=== PATIENT | male | born 1980 | race Caucasian/White ===

== ENCOUNTER 2018-05-10 17:49 | Inpatient (IN) | payer MEDICAID, OTHER ==
--- NOTE | 2018-05-10 18:14 | EDM.PDOC ---
<Susan Gonzales - Last Filed: 05/10/18 18:14> ED HPI GENERAL MEDICAL PROBLEM - General Chief Complaint: Skin Complaint Stated Complaint: LEG INJURY [id number] Time Seen by Provider: 05/10/18 18:14 Source of Information: Reports: Patient, Family, RN, RN Notes Reviewed History Limitations: Reports: No Limitations Right Lower Leg Pain Score (Numeric/FACES): 4 - Related Data Allergies Allergy/AdvReac Type Severity Reaction Status Date / Time No Known Allergies Allergy Verified 05/10/18 18:12 Home Meds: Home Meds Clindamycin HCl 300 mg PO TID 05/10/18 [History] Ibuprofen 400 mg PO Q8HR PRN 05/10/18 [History] metFORMIN HCl [Metformin HCl] 500 mg PO BID 05/10/18 [History] Past Medical History - Past Health History Medical/Surgical History: Denies Medical/Surgical History Course - Vital Signs Last Recorded V/S: Last Vital Signs Temp 36.6 C 05/10/18 18:03 Pulse 88 05/10/18 18:03 Resp 16 05/10/18 18:03 BP 142/81 H 05/10/18 18:20 Pulse Ox 97 05/10/18 18:03 - Orders/Labs/Meds Orders: Active Orders 24 hr Category Date Time Status CULTURE BLOOD [BC] Stat Lab 05/10/18 18:45 Received CULTURE BLOOD [BC] Stat Lab 05/10/18 18:50 Results CULTURE WOUND [RM] Stat Lab 05/10/18 20:10 Received Vancomycin 1 gm Med 05/10/18 20:00 Active Sodium Chloride 0.9% [Normal Saline] 250 ml IV ONETIME Blood Culture x2 Reflex Set [OM.PC] Stat Oth 05/10/18 18:34 Ordered Medication Orders Vancomycin HCl 1 gm/ Sodium (Chloride) 250 mls @ 167 mls/hr IV ONETIME ONE Stop: 05/10/18 21:29 Last Admin: 05/10/18 20:36 Dose: 167 mls/hr Labs: Laboratory Tests 05/10/18 05/10/18 05/10/18 Range/Units 18:45 18:45 18:45 WBC 21.0 H (5.0-10.0) 10^3/uL RBC 4.87 (4.6-6.2) 10^6/uL Hgb 13.8 L (14.0-18.0) g/dL Hct 41.2 (40.0-54.0) % MCV 84.6 (80-100) fL MCH 28.3 (27.0-34.0) pg MCHC 33.5 (33.0-35.0) g/dL Plt Count 383 D (150-450) 10^3/uL Neut % (Auto) 76.7 H (42.2-75.2) % Lymph % (Auto) 9.6 L (20.5-50.1) % [place] % (Auto) 10.7 H (2-8) % Eos % (Auto) 2.5 (1.0-3.0) % Baso % (Auto) 0.5 (0.0-1.0) % Add Manual Diff Yes Neutrophils % (Manual) 76 H (42-75) % Band Neutrophils % 7 % Lymphocytes % (Manual) 7 L (20-50) % Atypical Lymphs % 0 % Monocytes % (Manual) 7 (2-8) % Eosinophils % (Manual) 3 (1-3) % Basophils % (Manual) 0 Sodium 133 L (135-145) mmol/L Potassium 3.8 (3.6-5.0) mmol/L Chloride 99 L (101-111) mmol/L Carbon Dioxide 25.0 (21.0-31.0) mmol/L Anion Gap 12.8 BUN 8 (7-18) mg/dL Creatinine 0.8 (0.6-1.3) mg/dL Est Cr Clr Drug Dosing 137.27 mL/min Estimated GFR (MDRD) > 60 BUN/Creatinine Ratio 10.00 Glucose 159 H (74-105) mg/dL Lactic Acid 1.5 (0.5-2.2) mmol/L Calcium 8.8 (8.4-10.2) mg/dl Total Bilirubin 1.0 (0.2-1.0) mg/dL AST 38 (10-42) IU/L ALT 41 (10-60) IU/L Alkaline Phosphatase 152 H (42-121) IU/L Total Protein 8.1 (6.7-8.2) g/dl Albumin 3.3 (3.2-5.5) g/dl Globulin 4.8 Albumin/Globulin Ratio 0.69 Urine Color (YELLOW) Urine Appearance (CLEAR) Urine pH (5.0-9.0) Ur Specific [place] (1.005-1.030) Urine Protein (NEGATIVE) Urine Glucose (UA) (NEGATIVE) Urine Ketones (NEGATIVE) Urine Occult Blood (NEGATIVE) Urine Nitrite (NEGATIVE) Urine Bilirubin (NEGATIVE) Urine Urobilinogen (0.2-1.0) mg/dL Ur Leukocyte Esterase (NEGATIVE) Urine RBC /HPF Urine WBC (0-5/HPF) /HPF Ur Epithelial Cells /HPF Urine Bacteria (0-FEW/HPF) /HPF Urine Mucus /LPF Urine Opiates Screen (NEGATIVE) Ur Oxycodone Screen (NEGATIVE) Urine Methadone Screen (NEGATIVE) Ur Barbiturates Screen (NEGATIVE) U Tricyclic Antidepress (NEGATIVE) Ur Phencyclidine Scrn (NEGATIVE) Ur Amphetamine Screen (NEGATIVE) U Methamphetamines Scrn (NEGATIVE) Urine MDMA Screen (NEGATIVE) U Benzodiazepines Scrn (NEGATIVE) Urine Cocaine Screen (NEGATIVE) U Marijuana (THC) Screen (NEGATIVE) 05/10/18 05/10/18 Range/Units 19:42 19:42 WBC (5.0-10.0) 10^3/uL RBC (4.6-6.2) 10^6/uL Hgb (14.0-18.0) g/dL Hct (40.0-54.0) % MCV (80-100) fL MCH (27.0-34.0) pg MCHC (33.0-35.0) g/dL Plt Count (150-450) 10^3/uL Neut % (Auto) (42.2-75.2) % Lymph % (Auto) (20.5-50.1) % [place] % (Auto) (2-8) % Eos % (Auto) (1.0-3.0) % Baso % (Auto) (0.0-1.0) % Add Manual Diff Neutrophils % (Manual) (42-75) % Band Neutrophils % % Lymphocytes % (Manual) (20-50) % Atypical Lymphs % % Monocytes % (Manual) (2-8) % Eosinophils % (Manual) (1-3) % Basophils % (Manual) Sodium (135-145) mmol/L Potassium (3.6-5.0) mmol/L Chloride (101-111) mmol/L Carbon Dioxide (21.0-31.0) mmol/L Anion Gap BUN (7-18) mg/dL Creatinine (0.6-1.3) mg/dL Est Cr Clr Drug Dosing mL/min Estimated GFR (MDRD) BUN/Creatinine Ratio Glucose (74-105) mg/dL Lactic Acid (0.5-2.2) mmol/L Calcium (8.4-10.2) mg/dl Total Bilirubin (0.2-1.0) mg/dL AST (10-42) IU/L ALT (10-60) IU/L Alkaline Phosphatase (42-121) IU/L Total Protein (6.7-8.2) g/dl Albumin (3.2-5.5) g/dl Globulin Albumin/Globulin Ratio Urine Color [place] (YELLOW) Urine Appearance Slightly cloudy (CLEAR) Urine pH 6.0 (5.0-9.0) Ur Specific [place] 1.025 (1.005-1.030) Urine Protein 30 H (NEGATIVE) Urine Glucose (UA) 100 H (NEGATIVE) Urine Ketones Trace H (NEGATIVE) Urine Occult Blood Negative (NEGATIVE) Urine Nitrite Negative (NEGATIVE) Urine Bilirubin Small H (NEGATIVE) Urine Urobilinogen 1.0 (0.2-1.0) mg/dL Ur Leukocyte Esterase Negative (NEGATIVE) Urine RBC 0-5 /HPF Urine WBC 0-5 (0-5/HPF) /HPF Ur Epithelial Cells Few /HPF Urine Bacteria Moderate H (0-FEW/HPF) /HPF Urine Mucus Moderate H /LPF Urine Opiates Screen Negative (NEGATIVE) Ur Oxycodone Screen Negative (NEGATIVE) Urine Methadone Screen Negative (NEGATIVE) Ur Barbiturates Screen Negative (NEGATIVE) U Tricyclic Antidepress Negative (NEGATIVE) Ur Phencyclidine Scrn Negative (NEGATIVE) Ur Amphetamine Screen Negative (NEGATIVE) U Methamphetamines Scrn Negative (NEGATIVE) Urine MDMA Screen Negative (NEGATIVE) U Benzodiazepines Scrn Negative (NEGATIVE) Urine Cocaine Screen Negative (NEGATIVE) U Marijuana (THC) Screen Negative (NEGATIVE) Meds: Medications Generic Name Dose Route Start Last Admin Trade Name Freq PRN Reason Stop Dose Admin Vancomycin HCl 1 gm/ Sodium 250 mls @ 167 mls/hr 05/10/18 20:00 05/10/18 20: 36 Chloride IV 05/10/18 21:29 167 mls/hr ONETIME ONE Administration Discontinued Medications Generic Name Dose Route Start Last Admin Trade Name Freq PRN Reason Stop Dose Admin Hydromorphone HCl 1 mg 05/10/18 20:13 05/10/18 20:34 Dilaudid IVPUSH 05/10/18 20:14 Not Given ONETIME ONE Hydromorphone HCl 1 mg 05/10/18 20:18 05/10/18 20:35 Dilaudid IVPUSH 05/10/18 20:19 1 mg ONETIME STA Administration Ondansetron HCl 4 mg 05/10/18 20:13 05/10/18 20:34 Zofran IV 05/10/18 20:14 Not Given ONETIME ONE Ondansetron HCl 4 mg 05/10/18 20:18 05/10/18 20:33 Zofran IV 05/10/18 20:19 4 mg ONETIME STA Administration Departure - Departure Disposition: Admitted As Inpatient 68 Clinical Impression: Abscess Cellulitis Qualifiers: Site of cellulitis: extremity Site of cellulitis of extremity: lower extremity Laterality: right Qualified Code(s): L03.115 - Cellulitis of right lower limb - Discharge Information Forms: ED Department Discharge - My Orders Last 24 Hours: My Active Orders 05/10/18 20:00 Vancomycin 1 gm Sodium Chloride 0.9% [Normal Saline] 250 ml IV ONETIME 05/10/18 20:10 CULTURE WOUND [RM] Stat - Assessment/Plan Last 24 Hours: My Active Orders 05/10/18 20:00 Vancomycin 1 gm Sodium Chloride 0.9% [Normal Saline] 250 ml IV ONETIME 05/10/18 20:10 CULTURE WOUND [RM] Stat <Ervin Ramirez - Last Filed: 05/10/18 20:50> ED HPI GENERAL MEDICAL PROBLEM - History of Present Illness INITIAL COMMENTS - FREE TEXT/NARRATIVE: states left leg got infected last but was in care home. saw clinic Monday and started ABX but not helping and looks worse. ED ROS GENERAL - Review of Systems Review Of Systems: ROS reveals no pertinent complaints other than HPI. ED EXAM, SKIN/RASH Exam: See Below Exam Limited By: No Limitations General Appearance: Alert, WD/WN, Mild Distress, Other (discomfort) Ears: Hearing Grossly Normal Throat/Mouth: Normal Voice, No Airway Compromise Head: Atraumatic Neck: Non-Tender, Full Range of Motion Respiratory/Chest: No Respiratory Distress Cardiovascular: Regular Rate, Rhythm GI/Abdominal: Soft, Non-Tender Extremities: Other (left lower leg swollen abscess cellulitis slight drainage, NV wnl, gait limited to pain) Neurological: Alert, Oriented, Normal Cognition, No Motor/Sensory Deficits Psychiatric: Flat Affect Skin: Warm, Dry, Normal Color Location, Skin: Lower Extremity, Right Associated features: Warmth, Tenderness, Swelling, Inflammation, Weeping Lymphatic: No Adenopathy ED SKIN PROCEDURES - I&D Site: right lower leg Skin Prep: Providone-Iodine (Betadine) Area Incised With: 11 Blade Drainage: Purulent, Bloody, Large Amount Packed With: 1/2 in. Iodoform Complications: No - Additional/Other Procedure(s) Other (Free Text) Procedure(s): 1) area cleansed 2) ethyl CL spray 3) aspirated 30ml purulosang fluid 4) dressed Course - Orders/Labs/Meds Labs: Laboratory Tests 05/10/18 05/10/18 05/10/18 Range/Units 18:45 18:45 18:45 WBC 21.0 H (5.0-10.0) 10^3/uL RBC 4.87 (4.6-6.2) 10^6/uL Hgb 13.8 L (14.0-18.0) g/dL Hct 41.2 (40.0-54.0) % MCV 84.6 (80-100) fL MCH 28.3 (27.0-34.0) pg MCHC 33.5 (33.0-35.0) g/dL Plt Count 383 D (150-450) 10^3/uL Neut % (Auto) 76.7 H (42.2-75.2) % Lymph % (Auto) 9.6 L (20.5-50.1) % [place] % (Auto) 10.7 H (2-8) % Eos % (Auto) 2.5 (1.0-3.0) % Baso % (Auto) 0.5 (0.0-1.0) % Add Manual Diff Yes Neutrophils % (Manual) 76 H (42-75) % Band Neutrophils % 7 % Lymphocytes % (Manual) 7 L (20-50) % Atypical Lymphs % 0 % Monocytes % (Manual) 7 (2-8) % Eosinophils % (Manual) 3 (1-3) % Basophils % (Manual) 0 Sodium 133 L (135-145) mmol/L Potassium 3.8 (3.6-5.0) mmol/L Chloride 99 L (101-111) mmol/L Carbon Dioxide 25.0 (21.0-31.0) mmol/L Anion Gap 12.8 BUN 8 (7-18) mg/dL Creatinine 0.8 (0.6-1.3) mg/dL Est Cr Clr Drug Dosing 137.27 mL/min Estimated GFR (MDRD) > 60 BUN/Creatinine Ratio 10.00 Glucose 159 H (74-105) mg/dL Lactic Acid 1.5 (0.5-2.2) mmol/L Calcium 8.8 (8.4-10.2) mg/dl Total Bilirubin 1.0 (0.2-1.0) mg/dL AST 38 (10-42) IU/L ALT 41 (10-60) IU/L Alkaline Phosphatase 152 H (42-121) IU/L Total Protein 8.1 (6.7-8.2) g/dl Albumin 3.3 (3.2-5.5) g/dl Globulin 4.8 Albumin/Globulin Ratio 0.69 Urine Color (YELLOW) Urine Appearance (CLEAR) Urine pH (5.0-9.0) Ur Specific [place] (1.005-1.030) Urine Protein (NEGATIVE) Urine Glucose (UA) (NEGATIVE) Urine Ketones (NEGATIVE) Urine Occult Blood (NEGATIVE) Urine Nitrite (NEGATIVE) Urine Bilirubin (NEGATIVE) Urine Urobilinogen (0.2-1.0) mg/dL Ur Leukocyte Esterase (NEGATIVE) Urine RBC /HPF Urine WBC (0-5/HPF) /HPF Ur Epithelial Cells /HPF Urine Bacteria (0-FEW/HPF) /HPF Urine Mucus /LPF Urine Opiates Screen (NEGATIVE) Ur Oxycodone Screen (NEGATIVE) Urine Methadone Screen (NEGATIVE) Ur Barbiturates Screen (NEGATIVE) U Tricyclic Antidepress (NEGATIVE) Ur Phencyclidine Scrn (NEGATIVE) Ur Amphetamine Screen (NEGATIVE) U Methamphetamines Scrn (NEGATIVE) Urine MDMA Screen (NEGATIVE) U Benzodiazepines Scrn (NEGATIVE) Urine Cocaine Screen (NEGATIVE) U Marijuana (THC) Screen (NEGATIVE) 05/10/18 05/10/18 Range/Units 19:42 19:42 WBC (5.0-10.0) 10^3/uL RBC (4.6-6.2) 10^6/uL Hgb (14.0-18.0) g/dL Hct (40.0-54.0) % MCV (80-100) fL MCH (27.0-34.0) pg MCHC (33.0-35.0) g/dL Plt Count (150-450) 10^3/uL Neut % (Auto) (42.2-75.2) % Lymph % (Auto) (20.5-50.1) % [place] % (Auto) (2-8) % Eos % (Auto) (1.0-3.0) % Baso % (Auto) (0.0-1.0) % Add Manual Diff Neutrophils % (Manual) (42-75) % Band Neutrophils % % Lymphocytes % (Manual) (20-50) % Atypical Lymphs % % Monocytes % (Manual) (2-8) % Eosinophils % (Manual) (1-3) % Basophils % (Manual) Sodium (135-145) mmol/L Potassium (3.6-5.0) mmol/L Chloride (101-111) mmol/L Carbon Dioxide (21.0-31.0) mmol/L Anion Gap BUN (7-18) mg/dL Creatinine (0.6-1.3) mg/dL Est Cr Clr Drug Dosing mL/min Estimated GFR (MDRD) BUN/Creatinine Ratio Glucose (74-105) mg/dL Lactic Acid (0.5-2.2) mmol/L Calcium (8.4-10.2) mg/dl Total Bilirubin (0.2-1.0) mg/dL AST (10-42) IU/L ALT (10-60) IU/L Alkaline Phosphatase (42-121) IU/L Total Protein (6.7-8.2) g/dl Albumin (3.2-5.5) g/dl Globulin Albumin/Globulin Ratio Urine Color [place] (YELLOW) Urine Appearance Slightly cloudy (CLEAR) Urine pH 6.0 (5.0-9.0) Ur Specific [place] 1.025 (1.005-1.030) Urine Protein 30 H (NEGATIVE) Urine Glucose (UA) 100 H (NEGATIVE) Urine Ketones Trace H (NEGATIVE) Urine Occult Blood Negative (NEGATIVE) Urine Nitrite Negative (NEGATIVE) Urine Bilirubin Small H (NEGATIVE) Urine Urobilinogen 1.0 (0.2-1.0) mg/dL Ur Leukocyte Esterase Negative (NEGATIVE) Urine RBC 0-5 /HPF Urine WBC 0-5 (0-5/HPF) /HPF Ur Epithelial Cells Few /HPF Urine Bacteria Moderate H (0-FEW/HPF) /HPF Urine Mucus Moderate H /LPF Urine Opiates Screen Negative (NEGATIVE) Ur Oxycodone Screen Negative (NEGATIVE) Urine Methadone Screen Negative (NEGATIVE) Ur Barbiturates Screen Negative (NEGATIVE) U Tricyclic Antidepress Negative (NEGATIVE) Ur Phencyclidine Scrn Negative (NEGATIVE) Ur Amphetamine Screen Negative (NEGATIVE) U Methamphetamines Scrn Negative (NEGATIVE) Urine MDMA Screen Negative (NEGATIVE) U Benzodiazepines Scrn Negative (NEGATIVE) Urine Cocaine Screen Negative (NEGATIVE) U Marijuana (THC) Screen Negative (NEGATIVE) Meds: Medications Generic Name Dose Route Start Last Admin Trade Name Freq PRN Reason Stop Dose Admin Vancomycin HCl 1 gm/ Sodium 250 mls @ 167 mls/hr 05/10/18 20:00 05/10/18 20: 36 Chloride IV 05/10/18 21:29 167 mls/hr ONETIME ONE Administration Discontinued Medications Generic Name Dose Route Start Last Admin Trade Name Freq PRN Reason Stop Dose Admin Hydromorphone HCl 1 mg 05/10/18 20:13 05/10/18 20:34 Dilaudid IVPUSH 05/10/18 20:14 Not Given ONETIME ONE Hydromorphone HCl 1 mg 05/10/18 20:18 05/10/18 20:35 Dilaudid IVPUSH 05/10/18 20:19 1 mg ONETIME STA Administration Ondansetron HCl 4 mg 05/10/18 20:13 05/10/18 20:34 Zofran IV 05/10/18 20:14 Not Given ONETIME ONE Ondansetron HCl 4 mg 05/10/18 20:18 05/10/18 20:33 Zofran IV 05/10/18 20:19 4 mg ONETIME STA Administration - Re-Assessments/Exams Free Text/Narrative Re-Assessment/Exam: 05/10/18 20:[address] Kendrick who kindly admitted pt Departure - Departure Time of Disposition: 20:49 Condition: Fair - My Orders Last 24 Hours: My Active Orders 05/10/18 20:00 Vancomycin 1 gm Sodium Chloride 0.9% [Normal Saline] 250 ml IV ONETIME 05/10/18 20:10 CULTURE WOUND [RM] Stat - Assessment/Plan Last 24 Hours: My Active Orders 05/10/18 20:00 Vancomycin 1 gm Sodium Chloride 0.9% [Normal Saline] 250 ml IV ONETIME 05/10/18 20:10 CULTURE WOUND [RM] Stat
[2018-05-10 19:21] LABS: ANION GAP 12.8; CHLORIDE,CL 99 mmol/L (101-111); SODIUM,NA 133 mmol/L (135-145)
[2018-05-10] MEDS ORDERED: HYDROmorphone 1 MG/ML Syringe IVPUSH ONE (20:13)
[2018-05-10] MEDS ORDERED: Ondansetron 4 MG/2 ML SDV IV ONE (20:13)
[2018-05-10] MEDS ORDERED: Ondansetron 4 MG/2 ML SDV IV STA (20:18)
[2018-05-10] MEDS ORDERED: HYDROmorphone 1 MG/ML Syringe IVPUSH STA (20:18)
[2018-05-10] MEDS ORDERED: Morphine 2 MG/ML Syringe IVPUSH PRN (21:31)
[2018-05-10] MEDS ORDERED: Zolpidem 5 MG Tab PO PRN (21:31)
[2018-05-10] MEDS ORDERED: Docusate Sodium 100 MG Cap PO PRN (21:31)
[2018-05-10] MEDS ORDERED: Ondansetron 4 MG Tab.DIS PO PRN (21:31)
[2018-05-10] MEDS ORDERED: Ibuprofen 400 MG Tab PO PRN (21:36)
--- NOTE | 2018-05-10 21:46 | PCM.HP ---
H&P History of Present Illness - General Date of Service: 05/10/18 Admit Problem/Dx: Admission Diagnosis/Problem Admission Diagnosis/Problem Cellulitis and abscess Source of Information: Patient - History of Present Illness Initial Comments - Free Text/Narative: 37-year-old gentleman with a history of diabetes. The patient developed right lower extremity pain, swelling, redness about a week prior to admission. The patient was diagnosed with cellulitis and was treated with clindamycin. Despite the oral antibiotic the patient's redness and swelling increased and came into the emergency room. He reports having fever and diffuse sweating initially. Location: Reports: Lower Extremity, Right Quality: Reports: Ache Severity: Moderate Worsens with: Reports: Other (Touch) Context: Denies: Trauma Associated Symptoms: Denies: Confusion, Chest Pain, Cough Right Lower Leg Pain Score (Numeric/FACES): 4 - Related Data Allergies/Adverse Reactions: Allergies Allergy/AdvReac Type Severity Reaction Status Date / Time No Known Allergies Allergy Verified 05/10/18 18:12 Home Medications: Home Meds Clindamycin HCl 300 mg PO TID 05/10/18 [History] Ibuprofen 400 mg PO Q8HR PRN 05/10/18 [History] metFORMIN HCl [Metformin HCl] 500 mg PO BID 05/10/18 [History] Past Medical History - Past Health History Medical/Surgical History: Denies Medical/Surgical History HEENT History: Reports: Impaired Vision Other HEENT History: wear glasses, Cardiovascular History: Reports: None, Hypertension Respiratory History: Reports: None Gastrointestinal History: Reports: None Genitourinary History: Reports: None Musculoskeletal History: Reports: None Neurological History: Reports: None Psychiatric History: Reports: None Endocrine/Metabolic History: Reports: Diabetes, Type II Hematologic History: Reports: None Immunologic History: Reports: None Oncologic (Cancer) History: Reports: None Dermatologic History: Reports: None - Infectious Disease History Infectious Disease History: Reports: None - Past Surgical History Head Surgeries/Procedures: Reports: None Social & Family History - Tobacco Use Smoking Status *Q: Current Every Day Smoker Years of Tobacco use: 8 Packs/Tins Daily: 0.5 - Caffeine Use Caffeine Use: Reports: Coffee, Soda - Recreational Drug Use Recreational Drug Use: No H&P Review of Systems - Review of Systems: Review Of Systems: See Below General: Reports: Fever Pulmonary: Denies: Shortness of Breath, Cough, Sputum Cardiovascular: Denies: Chest Pain Gastrointestinal: Denies: Abdominal Pain Psychiatric: Denies: Confusion Exam - Exam Exam: See Below - Vital Signs Vital Signs: Last Vital Signs Temp 36.6 C 05/10/18 18:03 Pulse 88 05/10/18 18:03 Resp 16 05/10/18 18:03 BP 142/81 H 05/10/18 18:20 Pulse Ox 97 05/10/18 18:03 Weight: 117.934 kg - Exam Quality Assessment: No: Supplemental Oxygen General: Alert, Oriented Neck: Supple Lungs: Clear to Auscultation, Normal Respiratory Effort Cardiovascular: Regular Rate, Regular Rhythm GI/Abdominal Exam: Normal Bowel Sounds, Soft, Non-Tender Back Exam: Normal Inspection Extremities: Other (Right lower extremity anterior pool area large palpable abscess that has drained about 50 mL possibly bloody drainage after incision) - Patient Data Lab Results Last 24 hrs: Laboratory Results - last 24 hr 05/10/18 05/10/18 05/10/18 Range/Units 18:45 18:45 18:45 WBC 21.0 H (5.0-10.0) 10^3/uL RBC 4.87 (4.6-6.2) 10^6/uL Hgb 13.8 L (14.0-18.0) g/dL Hct 41.2 (40.0-54.0) % MCV 84.6 (80-100) fL MCH 28.3 (27.0-34.0) pg MCHC 33.5 (33.0-35.0) g/dL Plt Count 383 D (150-450) 10^3/uL Neut % (Auto) 76.7 H (42.2-75.2) % Lymph % (Auto) 9.6 L (20.5-50.1) % [place] % (Auto) 10.7 H (2-8) % Eos % (Auto) 2.5 (1.0-3.0) % Baso % (Auto) 0.5 (0.0-1.0) % Add Manual Diff Yes Neutrophils % (Manual) 76 H (42-75) % Band Neutrophils % 7 % Lymphocytes % (Manual) 7 L (20-50) % Atypical Lymphs % 0 % Monocytes % (Manual) 7 (2-8) % Eosinophils % (Manual) 3 (1-3) % Basophils % (Manual) 0 Sodium 133 L (135-145) mmol/L Potassium 3.8 (3.6-5.0) mmol/L Chloride 99 L (101-111) mmol/L Carbon Dioxide 25.0 (21.0-31.0) mmol/L Anion Gap 12.8 BUN 8 (7-18) mg/dL Creatinine 0.8 (0.6-1.3) mg/dL Est Cr Clr Drug Dosing 137.27 mL/min Estimated GFR (MDRD) > 60 BUN/Creatinine Ratio 10.00 Glucose 159 H (74-105) mg/dL Lactic Acid 1.5 (0.5-2.2) mmol/L Calcium 8.8 (8.4-10.2) mg/dl Total Bilirubin 1.0 (0.2-1.0) mg/dL AST 38 (10-42) IU/L ALT 41 (10-60) IU/L Alkaline Phosphatase 152 H (42-121) IU/L Total Protein 8.1 (6.7-8.2) g/dl Albumin 3.3 (3.2-5.5) g/dl Globulin 4.8 Albumin/Globulin Ratio 0.69 Urine Color (YELLOW) Urine Appearance (CLEAR) Urine pH (5.0-9.0) Ur Specific [place] (1.005-1.030) Urine Protein (NEGATIVE) Urine Glucose (UA) (NEGATIVE) Urine Ketones (NEGATIVE) Urine Occult Blood (NEGATIVE) Urine Nitrite (NEGATIVE) Urine Bilirubin (NEGATIVE) Urine Urobilinogen (0.2-1.0) mg/dL Ur Leukocyte Esterase (NEGATIVE) Urine RBC /HPF Urine WBC (0-5/HPF) /HPF Ur Epithelial Cells /HPF Urine Bacteria (0-FEW/HPF) /HPF Urine Mucus /LPF Urine Opiates Screen (NEGATIVE) Ur Oxycodone Screen (NEGATIVE) Urine Methadone Screen (NEGATIVE) Ur Barbiturates Screen (NEGATIVE) U Tricyclic Antidepress (NEGATIVE) Ur Phencyclidine Scrn (NEGATIVE) Ur Amphetamine Screen (NEGATIVE) U Methamphetamines Scrn (NEGATIVE) Urine MDMA Screen (NEGATIVE) U Benzodiazepines Scrn (NEGATIVE) Urine Cocaine Screen (NEGATIVE) U Marijuana (THC) Screen (NEGATIVE) 05/10/18 05/10/18 Range/Units 19:42 19:42 WBC (5.0-10.0) 10^3/uL RBC (4.6-6.2) 10^6/uL Hgb (14.0-18.0) g/dL Hct (40.0-54.0) % MCV (80-100) fL MCH (27.0-34.0) pg MCHC (33.0-35.0) g/dL Plt Count (150-450) 10^3/uL Neut % (Auto) (42.2-75.2) % Lymph % (Auto) (20.5-50.1) % [place] % (Auto) (2-8) % Eos % (Auto) (1.0-3.0) % Baso % (Auto) (0.0-1.0) % Add Manual Diff Neutrophils % (Manual) (42-75) % Band Neutrophils % % Lymphocytes % (Manual) (20-50) % Atypical Lymphs % % Monocytes % (Manual) (2-8) % Eosinophils % (Manual) (1-3) % Basophils % (Manual) Sodium (135-145) mmol/L Potassium (3.6-5.0) mmol/L Chloride (101-111) mmol/L Carbon Dioxide (21.0-31.0) mmol/L Anion Gap BUN (7-18) mg/dL Creatinine (0.6-1.3) mg/dL Est Cr Clr Drug Dosing mL/min Estimated GFR (MDRD) BUN/Creatinine Ratio Glucose (74-105) mg/dL Lactic Acid (0.5-2.2) mmol/L Calcium (8.4-10.2) mg/dl Total Bilirubin (0.2-1.0) mg/dL AST (10-42) IU/L ALT (10-60) IU/L Alkaline Phosphatase (42-121) IU/L Total Protein (6.7-8.2) g/dl Albumin (3.2-5.5) g/dl Globulin Albumin/Globulin Ratio Urine Color [place] (YELLOW) Urine Appearance Slightly cloudy (CLEAR) Urine pH 6.0 (5.0-9.0) Ur Specific [place] 1.025 (1.005-1.030) Urine Protein 30 H (NEGATIVE) Urine Glucose (UA) 100 H (NEGATIVE) Urine Ketones Trace H (NEGATIVE) Urine Occult Blood Negative (NEGATIVE) Urine Nitrite Negative (NEGATIVE) Urine Bilirubin Small H (NEGATIVE) Urine Urobilinogen 1.0 (0.2-1.0) mg/dL Ur Leukocyte Esterase Negative (NEGATIVE) Urine RBC 0-5 /HPF Urine WBC 0-5 (0-5/HPF) /HPF Ur Epithelial Cells Few /HPF Urine Bacteria Moderate H (0-FEW/HPF) /HPF Urine Mucus Moderate H /LPF Urine Opiates Screen Negative (NEGATIVE) Ur Oxycodone Screen Negative (NEGATIVE) Urine Methadone Screen Negative (NEGATIVE) Ur Barbiturates Screen Negative (NEGATIVE) U Tricyclic Antidepress Negative (NEGATIVE) Ur Phencyclidine Scrn Negative (NEGATIVE) Ur Amphetamine Screen Negative (NEGATIVE) U Methamphetamines Scrn Negative (NEGATIVE) Urine MDMA Screen Negative (NEGATIVE) U Benzodiazepines Scrn Negative (NEGATIVE) Urine Cocaine Screen Negative (NEGATIVE) U Marijuana (THC) Screen Negative (NEGATIVE) Result Diagrams: 05/10/18 18:45 05/10/18 18:45 Moisés Results Last 24 hrs: Microbiology 05/10/18 18:50 Anaerobic Blood Culture - Final Blood - Venous - Lab Draw - Problem List (1) Diabetes SNOMED Code(s): 84027067 ICD Code: E11.9 - TYPE 2 DIABETES MELLITUS WITHOUT COMPLICATIONS Status: Acute Current Visit: Yes (2) Abscess SNOMED Code(s): 249642828 ICD Code: L02.91 - CUTANEOUS ABSCESS, UNSPECIFIED Status: Acute Current Visit: No (3) Cellulitis SNOMED Code(s): 959106697 ICD Code: L03.90 - CELLULITIS, UNSPECIFIED Status: Acute Current Visit: No Qualifiers: Site of cellulitis: extremity Site of cellulitis of extremity: lower extremity Laterality: right Qualified Code(s): L03.115 - Cellulitis of right lower limb Problem List Initiated/Reviewed/Updated: Yes Orders Last 24hrs: Active Orders 24 hr Category Date Time Status Patient Status [ADT] Routine ADT 05/10/18 21:31 Ordered Blood Glucose Check, Bedside [RC] QIDACANDBED Care 05/10/18 21:31 Ordered Oxygen Therapy [RC] PRN Care 05/10/18 21:31 Ordered Peripheral IV Care [RC] . DIRECTED Care 05/10/18 21:33 Ordered Up ad Tiffany [RC] ASDIRECTED Care 05/10/18 21:31 Ordered VTE/DVT Education [RC] PER UNIT ROUTINE Care 05/10/18 21:31 Ordered Vital Signs [RC] Q4H Care 05/10/18 21:31 Ordered Consistent Carbohydrate Diet [DIET] Diet 05/10/18 Breakfast Ordered BASIC METABOLIC PANEL,BMP [CHEM] AM Lab 05/11/18 05:11 Ordered CBC WITH AUTO DIFF [HEME] AM Lab 05/11/18 05:11 Ordered CULTURE BLOOD [BC] Stat Lab 05/10/18 18:45 Received CULTURE BLOOD [BC] Stat Lab 05/10/18 18:50 Results CULTURE WOUND [RM] Stat Lab 05/10/18 20:10 Received Docusate Sodium [Colace] Med 05/10/18 21:31 Ordered 100 mg PO BID PRN Heparin Sodium Med 05/10/18 22:00 Ordered 5,000 units SUBCUT Q8HR Ibuprofen [Motrin] Med 05/10/18 21:36 Ordered 400 mg PO Q6H PRN Insulin Aspart [NovoLOG] Med 05/10/18 21:45 Ordered See Protocol SUBCUT .QAC+HS Morphine Med 05/10/18 21:31 Ordered 2 mg IVPUSH Q4H PRN Ondansetron [Zofran ODT] Med 05/10/18 21:31 Ordered 4 mg PO Q6H PRN Piperacillin/Tazobactam [Zosyn] 3.375 gm Med 05/10/18 21:45 Ordered Sodium Chloride 0.9% [Normal Saline] 100 ml IV Q6H Sodium Chloride 0.9% [Saline Flush] Med 05/10/18 21:31 Ordered 10 ml FLUSH ASDIRECTED PRN Vancomycin Pharmacy to Dose [Pharmacy to Dose - Med 05/10/18 21:45 Ordered Vancomycin] 1 dose .XX ASDIRECTED Zolpidem [Ambien] Med 05/10/18 21:31 Ordered 5 mg PO BEDTIME PRN oxyCODONE Med 05/10/18 21:31 Ordered 5 mg PO Q4H PRN Blood Culture x2 Reflex Set [OM.PC] Stat Oth 05/10/18 18:34 Ordered Peripheral IV Insertion Adult [OM.PC] Routine Oth 05/10/18 21:31 Ordered Saline Lock Insert [OM.PC] Routine Oth 05/10/18 21:31 Ordered Resuscitation Status Routine Resus Stat 05/10/18 21:31 Ordered Medication Orders Docusate Sodium (Colace) 100 mg PO BID PRN PRN Reason: Constipation Heparin Sodium (Porcine) (Heparin Sodium) 5,000 units SUBCUT Q8HR MARIELLE Piperacillin Sod/Tazobactam (Sod 3.375 gm/ Sodium Chloride) 100 mls @ 200 mls/ hr IV Q6H MARIELLE Ibuprofen (Motrin) 400 mg PO Q6H PRN PRN Reason: mild pain Insulin Aspart (Novolog) 0 unit SUBCUT ACBED MARIELLE; Protocol Morphine Sulfate (Morphine) 2 mg IVPUSH Q4H PRN PRN Reason: Pain (severe 7-10) Ondansetron HCl (Zofran Odt) 4 mg PO Q6H PRN PRN Reason: nausea, able to take PO Oxycodone HCl (Oxycodone) 5 mg PO Q4H PRN PRN Reason: Pain (moderate 4-6) Sodium Chloride (Saline Flush) 10 ml FLUSH ASDIRECTED PRN PRN Reason: Keep Vein Open Vancomycin HCl (Pharmacy To Dose - Vancomycin) 1 dose .XX ASDIRECTED MARIELLE Zolpidem Tartrate (Ambien) 5 mg PO BEDTIME PRN PRN Reason: Sleep Assessment/Plan Comment:: The patient is a 37-year-old gentleman who had developed a right lower extremity redness, pain, swelling. The patient was noted to have cellulitis with a large abscess that was drained in the emergency room. Cellulitis with abscess Failed outpatient oral antibiotic treatment with clindamycin Obtain blood culture Send culture from the drainage Wound care with packing of the wound Treat empirically with vancomycin and Zosyn Diabetes Hold the metformin Follow blood sugars and use supplemental insulin as needed DVT prophylaxis with subcutaneous heparin
[2018-05-10] MEDS: Heparin Sodium 5,000 Units/ML Vial SUBCUT SCH (23:22)
[2018-05-10] MEDS: Piperacillin/Tazobactam 3.375 GM in Sodium Chloride 0.9% 100 ML IV SCH (23:24)
[2018-05-10] MEDS: Sodium Chloride 0.9% 10 ML Syringe FLUSH PRN ×2 (23:24→23:58)
[2018-05-10] MEDS: Insulin Aspart 100 Units/ML 3 ML Pen SUBCUT SCH (23:47)
[2018-05-11] MEDS: oxyCODONE 5 MG Tab PO PRN ×3 (03:34→19:25)
[2018-05-11] MEDS: Piperacillin/Tazobactam 3.375 GM in Sodium Chloride 0.9% 100 ML IV SCH ×4 (04:28→22:34)
[2018-05-11] MEDS ORDERED: Vancomycin 1.5 GM in Sodium Chloride 0.9% 500 ML IV SCH (05:00)
[2018-05-11] MEDS: Heparin Sodium 5,000 Units/ML Vial SUBCUT SCH ×3 (05:52→22:35)
[2018-05-11 06:45] LABS: ANION GAP 10.8; CHLORIDE,CL 101 mmol/L (101-111); SODIUM,NA 133 mmol/L (135-145)
[2018-05-11] MEDS: Insulin Aspart 100 Units/ML 3 ML Pen SUBCUT SCH ×4 (08:07→20:51)
--- NOTE | 2018-05-11 10:37 | PCM.PN ---
- General Info Date of Service: 05/11/18 Subjective Update: The redness in the lower extremity has improved. There is moderate pain at the site of the abscess on the right leg. Nonradiating. Sharp. Paternal with oxycodone. No associated chest pain, shortness of breath, nausea or vomiting. No diarrhea Functional Status: Reports: Pain Controlled, Tolerating Diet - Review of Systems General: Denies: Fever Pulmonary: Denies: Shortness of Breath Cardiovascular: Denies: Chest Pain Gastrointestinal: Denies: Abdominal Pain Genitourinary: Denies: Dysuria Neurological: Denies: Confusion - Patient Data Vitals - Most Recent: Last Vital Signs Temp 36.6 C 05/11/18 07:47 Pulse 72 05/11/18 07:47 Resp 20 05/11/18 07:47 BP 115/65 05/11/18 07:47 Pulse Ox 98 05/11/18 07:47 Weight - Most Recent: 116.392 kg I&O - Last 24 Hours: Intake & Output 05/10/18 05/11/18 05/11/18 22:59 06:59 14:59 Intake Total 450 1736 Balance 450 1736 Lab Results Last 24 Hours: Laboratory Results - last 24 hr 05/10/18 05/10/18 05/10/18 Range/Units 18:45 18:45 18:45 WBC 21.0 H (5.0-10.0) 10^3/uL RBC 4.87 (4.6-6.2) 10^6/uL Hgb 13.8 L (14.0-18.0) g/dL Hct 41.2 (40.0-54.0) % MCV 84.6 (80-100) fL MCH 28.3 (27.0-34.0) pg MCHC 33.5 (33.0-35.0) g/dL Plt Count 383 D (150-450) 10^3/uL Neut % (Auto) 76.7 H (42.2-75.2) % Lymph % (Auto) 9.6 L (20.5-50.1) % [place] % (Auto) 10.7 H (2-8) % Eos % (Auto) 2.5 (1.0-3.0) % Baso % (Auto) 0.5 (0.0-1.0) % Add Manual Diff Yes Neutrophils % (Manual) 76 H (42-75) % Band Neutrophils % 7 % Lymphocytes % (Manual) 7 L (20-50) % Atypical Lymphs % 0 % Monocytes % (Manual) 7 (2-8) % Eosinophils % (Manual) 3 (1-3) % Basophils % (Manual) 0 Sodium 133 L (135-145) mmol/L Potassium 3.8 (3.6-5.0) mmol/L Chloride 99 L (101-111) mmol/L Carbon Dioxide 25.0 (21.0-31.0) mmol/L Anion Gap 12.8 BUN 8 (7-18) mg/dL Creatinine 0.8 (0.6-1.3) mg/dL Est Cr Clr Drug Dosing 137.27 mL/min Estimated GFR (MDRD) > 60 BUN/Creatinine Ratio 10.00 Glucose 159 H (74-105) mg/dL POC Glucose (70-105) mg/dl Lactic Acid 1.5 (0.5-2.2) mmol/L Calcium 8.8 (8.4-10.2) mg/dl Total Bilirubin 1.0 (0.2-1.0) mg/dL AST 38 (10-42) IU/L ALT 41 (10-60) IU/L Alkaline Phosphatase 152 H (42-121) IU/L Total Protein 8.1 (6.7-8.2) g/dl Albumin 3.3 (3.2-5.5) g/dl Globulin 4.8 Albumin/Globulin Ratio 0.69 Urine Color (YELLOW) Urine Appearance (CLEAR) Urine pH (5.0-9.0) Ur Specific [place] (1.005-1.030) Urine Protein (NEGATIVE) Urine Glucose (UA) (NEGATIVE) Urine Ketones (NEGATIVE) Urine Occult Blood (NEGATIVE) Urine Nitrite (NEGATIVE) Urine Bilirubin (NEGATIVE) Urine Urobilinogen (0.2-1.0) mg/dL Ur Leukocyte Esterase (NEGATIVE) Urine RBC /HPF Urine WBC (0-5/HPF) /HPF Ur Epithelial Cells /HPF Urine Bacteria (0-FEW/HPF) /HPF Urine Mucus /LPF Urine Opiates Screen (NEGATIVE) Ur Oxycodone Screen (NEGATIVE) Urine Methadone Screen (NEGATIVE) Ur Barbiturates Screen (NEGATIVE) U Tricyclic Antidepress (NEGATIVE) Ur Phencyclidine Scrn (NEGATIVE) Ur Amphetamine Screen (NEGATIVE) U Methamphetamines Scrn (NEGATIVE) Urine MDMA Screen (NEGATIVE) U Benzodiazepines Scrn (NEGATIVE) Urine Cocaine Screen (NEGATIVE) U Marijuana (THC) Screen (NEGATIVE) 05/10/18 05/10/18 05/10/18 Range/Units 19:42 19:42 23:38 WBC (5.0-10.0) 10^3/uL RBC (4.6-6.2) 10^6/uL Hgb (14.0-18.0) g/dL Hct (40.0-54.0) % MCV (80-100) fL MCH (27.0-34.0) pg MCHC (33.0-35.0) g/dL Plt Count (150-450) 10^3/uL Neut % (Auto) (42.2-75.2) % Lymph % (Auto) (20.5-50.1) % [place] % (Auto) (2-8) % Eos % (Auto) (1.0-3.0) % Baso % (Auto) (0.0-1.0) % Add Manual Diff Neutrophils % (Manual) (42-75) % Band Neutrophils % % Lymphocytes % (Manual) (20-50) % Atypical Lymphs % % Monocytes % (Manual) (2-8) % Eosinophils % (Manual) (1-3) % Basophils % (Manual) Sodium (135-145) mmol/L Potassium (3.6-5.0) mmol/L Chloride (101-111) mmol/L Carbon Dioxide (21.0-31.0) mmol/L Anion Gap BUN (7-18) mg/dL Creatinine (0.6-1.3) mg/dL Est Cr Clr Drug Dosing mL/min Estimated GFR (MDRD) BUN/Creatinine Ratio Glucose (74-105) mg/dL POC Glucose 189 H (70-105) mg/dl Lactic Acid (0.5-2.2) mmol/L Calcium (8.4-10.2) mg/dl Total Bilirubin (0.2-1.0) mg/dL AST (10-42) IU/L ALT (10-60) IU/L Alkaline Phosphatase (42-121) IU/L Total Protein (6.7-8.2) g/dl Albumin (3.2-5.5) g/dl Globulin Albumin/Globulin Ratio Urine Color [place] (YELLOW) Urine Appearance Slightly cloudy (CLEAR) Urine pH 6.0 (5.0-9.0) Ur Specific [place] 1.025 (1.005-1.030) Urine Protein 30 H (NEGATIVE) Urine Glucose (UA) 100 H (NEGATIVE) Urine Ketones Trace H (NEGATIVE) Urine Occult Blood Negative (NEGATIVE) Urine Nitrite Negative (NEGATIVE) Urine Bilirubin Small H (NEGATIVE) Urine Urobilinogen 1.0 (0.2-1.0) mg/dL Ur Leukocyte Esterase Negative (NEGATIVE) Urine RBC 0-5 /HPF Urine WBC 0-5 (0-5/HPF) /HPF Ur Epithelial Cells Few /HPF Urine Bacteria Moderate H (0-FEW/HPF) /HPF Urine Mucus Moderate H /LPF Urine Opiates Screen Negative (NEGATIVE) Ur Oxycodone Screen Negative (NEGATIVE) Urine Methadone Screen Negative (NEGATIVE) Ur Barbiturates Screen Negative (NEGATIVE) U Tricyclic Antidepress Negative (NEGATIVE) Ur Phencyclidine Scrn Negative (NEGATIVE) Ur Amphetamine Screen Negative (NEGATIVE) U Methamphetamines Scrn Negative (NEGATIVE) Urine MDMA Screen Negative (NEGATIVE) U Benzodiazepines Scrn Negative (NEGATIVE) Urine Cocaine Screen Negative (NEGATIVE) U Marijuana (THC) Screen Negative (NEGATIVE) 05/11/18 05/11/18 Range/Units 06:10 06:10 WBC 16.1 H (5.0-10.0) 10^3/uL RBC 4.38 L (4.6-6.2) 10^6/uL Hgb 12.5 L (14.0-18.0) g/dL Hct 37.8 L (40.0-54.0) % MCV 86.3 (80-100) fL MCH 28.5 (27.0-34.0) pg MCHC 33.1 (33.0-35.0) g/dL Plt Count 370 (150-450) 10^3/uL Neut % (Auto) 68.6 (42.2-75.2) % Lymph % (Auto) 15.9 L (20.5-50.1) % [place] % (Auto) 10.3 H (2-8) % Eos % (Auto) 4.5 H (1.0-3.0) % Baso % (Auto) 0.7 (0.0-1.0) % Add Manual Diff Neutrophils % (Manual) (42-75) % Band Neutrophils % % Lymphocytes % (Manual) (20-50) % Atypical Lymphs % % Monocytes % (Manual) (2-8) % Eosinophils % (Manual) (1-3) % Basophils % (Manual) Sodium 133 L (135-145) mmol/L Potassium 3.8 (3.6-5.0) mmol/L Chloride 101 (101-111) mmol/L Carbon Dioxide 25.0 (21.0-31.0) mmol/L Anion Gap 10.8 BUN 8 (7-18) mg/dL Creatinine 0.8 (0.6-1.3) mg/dL Est Cr Clr Drug Dosing 137.27 mL/min Estimated GFR (MDRD) > 60 BUN/Creatinine Ratio Glucose 130 H (74-105) mg/dL POC Glucose (70-105) mg/dl Lactic Acid (0.5-2.2) mmol/L Calcium 8.1 L (8.4-10.2) mg/dl Total Bilirubin (0.2-1.0) mg/dL AST (10-42) IU/L ALT (10-60) IU/L Alkaline Phosphatase (42-121) IU/L Total Protein (6.7-8.2) g/dl Albumin (3.2-5.5) g/dl Globulin Albumin/Globulin Ratio Urine Color (YELLOW) Urine Appearance (CLEAR) Urine pH (5.0-9.0) Ur Specific [place] (1.005-1.030) Urine Protein (NEGATIVE) Urine Glucose (UA) (NEGATIVE) Urine Ketones (NEGATIVE) Urine Occult Blood (NEGATIVE) Urine Nitrite (NEGATIVE) Urine Bilirubin (NEGATIVE) Urine Urobilinogen (0.2-1.0) mg/dL Ur Leukocyte Esterase (NEGATIVE) Urine RBC /HPF Urine WBC (0-5/HPF) /HPF Ur Epithelial Cells /HPF Urine Bacteria (0-FEW/HPF) /HPF Urine Mucus /LPF Urine Opiates Screen (NEGATIVE) Ur Oxycodone Screen (NEGATIVE) Urine Methadone Screen (NEGATIVE) Ur Barbiturates Screen (NEGATIVE) U Tricyclic Antidepress (NEGATIVE) Ur Phencyclidine Scrn (NEGATIVE) Ur Amphetamine Screen (NEGATIVE) U Methamphetamines Scrn (NEGATIVE) Urine MDMA Screen (NEGATIVE) U Benzodiazepines Scrn (NEGATIVE) Urine Cocaine Screen (NEGATIVE) U Marijuana (THC) Screen (NEGATIVE) Moisés Results Last 24 Hours: Microbiology 05/10/18 18:50 Anaerobic Blood Culture - Final Blood - Venous - Lab Draw Med Orders - Current: Current Medications Docusate Sodium (Colace) 100 mg PO BID PRN PRN Reason: Constipation Heparin Sodium (Porcine) (Heparin Sodium) 5,000 units SUBCUT Q8HR [facility] Last Admin: 05/11/18 05:52 Dose: 5,000 units Piperacillin Sod/Tazobactam (Sod 3.375 gm/ Sodium Chloride) 100 mls @ 200 mls/ hr IV Q6H [facility] Last Admin: 05/11/18 10:31 Dose: 200 mls/hr Vancomycin HCl 1.5 gm/ Sodium (Chloride) 500 mls @ 333.333 mls/hr IV Q8H [facility] Last Admin: 05/11/18 05:07 Dose: 333.333 mls/hr Ibuprofen (Motrin) 400 mg PO Q6H PRN PRN Reason: mild pain Insulin Aspart (Novolog) 0 unit SUBCUT ACBED [facility]; Protocol Last Admin: 05/11/18 08:07 Dose: Not Given Morphine Sulfate (Morphine) 2 mg IVPUSH Q4H PRN PRN Reason: Pain (severe 7-10) Ondansetron HCl (Zofran Odt) 4 mg PO Q6H PRN PRN Reason: nausea, able to take PO Oxycodone HCl (Oxycodone) 5 mg PO Q4H PRN PRN Reason: Pain (moderate 4-6) Last Admin: 05/11/18 03:34 Dose: 5 mg Sodium Chloride (Saline Flush) 10 ml FLUSH ASDIRECTED PRN PRN Reason: Keep Vein Open Last Admin: 05/10/18 23:58 Dose: 10 ml Vancomycin HCl (Pharmacy To Dose - Vancomycin) 1 dose .XX ASDIRECTED [facility] Zolpidem Tartrate (Ambien) 5 mg PO BEDTIME PRN PRN Reason: Sleep Discontinued Medications Hydromorphone HCl (Dilaudid) 1 mg IVPUSH ONETIME ONE Stop: 05/10/18 20:14 Last Admin: 05/10/18 20:34 Dose: Not Given Hydromorphone HCl (Dilaudid) 1 mg IVPUSH ONETIME STA Stop: 05/10/18 20:19 Last Admin: 05/10/18 20:35 Dose: 1 mg Vancomycin HCl 1 gm/ Sodium (Chloride) 250 mls @ 167 mls/hr IV ONETIME ONE Stop: 05/10/18 21:29 Last Admin: 05/10/18 20:36 Dose: 167 mls/hr Ondansetron HCl (Zofran) 4 mg IV ONETIME ONE Stop: 05/10/18 20:14 Last Admin: 05/10/18 20:34 Dose: Not Given Ondansetron HCl (Zofran) 4 mg IV ONETIME STA Stop: 05/10/18 20:19 Last Admin: 05/10/18 20:33 Dose: 4 mg - Exam General: Alert, Oriented Neck: Supple Lungs: Clear to Auscultation, Normal Respiratory Effort Cardiovascular: Regular Rate, Regular Rhythm GI/Abdominal Exam: Normal Bowel Sounds, Soft, Non-Tender Extremities: Other (Right lower extremity with erythema, the site of the incision and that treatment should has some minimal bloody drainage.) Neurological: No New Focal Deficit Psy/Mental Status: Alert, Normal Affect, Normal Mood - Problem List & Annotations (1) Diabetes SNOMED Code(s): 62516461 Code(s): E11.9 - TYPE 2 DIABETES MELLITUS WITHOUT COMPLICATIONS Status: Acute Current Visit: Yes (2) Abscess SNOMED Code(s): 741892363 Code(s): L02.91 - CUTANEOUS ABSCESS, UNSPECIFIED Status: Acute Current Visit: No (3) Cellulitis SNOMED Code(s): 432410117 Code(s): L03.90 - CELLULITIS, UNSPECIFIED Status: Acute Current Visit: No Qualifiers: Site of cellulitis: extremity Site of cellulitis of extremity: lower extremity Laterality: right Qualified Code(s): L03.115 - Cellulitis of right lower limb - Problem List Review Problem List Initiated/Reviewed/Updated: Yes - My Orders Last 24 Hours: My Active Orders 05/10/18 21:31 Patient Status [ADT] Routine Blood Glucose Check, Bedside [RC] QIDACANDBED Oxygen Therapy [RC] PRN Up ad Tiffany [RC] ASDIRECTED VTE/DVT Education [RC] PER UNIT ROUTINE Vital Signs [RC] Q4H Docusate Sodium [Colace] 100 mg PO BID PRN Morphine 2 mg IVPUSH Q4H PRN Ondansetron [Zofran ODT] 4 mg PO Q6H PRN Sodium Chloride 0.9% [Saline Flush] 10 ml FLUSH ASDIRECTED PRN Zolpidem [Ambien] 5 mg PO BEDTIME PRN oxyCODONE 5 mg PO Q4H PRN Peripheral IV Insertion Adult [OM.PC] Routine Saline Lock Insert [OM.PC] Routine Resuscitation Status Routine 05/10/18 21:33 Peripheral IV Care [RC] . DIRECTED 05/10/18 21:36 Ibuprofen [Motrin] 400 mg PO Q6H PRN 05/10/18 21:45 Insulin Aspart [NovoLOG] See Protocol SUBCUT ACBED Vancomycin Pharmacy to Dose [Pharmacy to Dose - Vancomycin] 1 dose .XX ASDIRECTED 05/10/18 22:00 Heparin Sodium 5,000 units SUBCUT Q8HR Piperacillin/Tazobactam [Zosyn] 3.375 gm Sodium Chloride 0.9% [Normal Saline] 100 ml IV Q6H 05/11/18 05:00 Vancomycin 1.5 gm Sodium Chloride 0.9% [Normal Saline] 500 ml IV Q8H 05/11/18 08:00 Communication Order [RC] Q12HR 05/12/18 04:30 VANCOMYCIN TROUGH [CHEM] Timed 05/12/18 05:15 CBC WITH AUTO DIFF [HEME] AM - Plan Plan:: The patient is a 37-year-old gentleman who had developed a right lower extremity redness, pain, swelling. The patient was noted to have cellulitis with a large abscess that was drained in the emergency room. Cellulitis with abscess Failed outpatient oral antibiotic treatment with clindamycin Pending blood culture Pending wound culture from the drainage Wound care with packing of the wound Treat empirically with vancomycin and Zosyn Diabetes Hold the metformin Follow blood sugars and use supplemental insulin as needed DVT prophylaxis with subcutaneous heparin
[2018-05-11] MEDS: Sodium Chloride 0.9% 10 ML Syringe FLUSH PRN (10:48)
[2018-05-11] MEDS ORDERED: Diphtheria,Pertussis(Acell),Tetanus Vaccine 0.5 ML SDV IM ONE (11:28)
[2018-05-11] MEDS: Vancomycin 1.5 GM in Sodium Chloride 0.9% 500 ML IV SCH ×2 (13:42→20:49)
[2018-05-12] MEDS: Piperacillin/Tazobactam 3.375 GM in Sodium Chloride 0.9% 100 ML IV SCH ×4 (03:27→22:16)
[2018-05-12] MEDS: Vancomycin 1.5 GM in Sodium Chloride 0.9% 500 ML IV SCH ×3 (04:01→20:38)
[2018-05-12] MEDS: Heparin Sodium 5,000 Units/ML Vial SUBCUT SCH ×3 (05:34→22:16)
[2018-05-12] MEDS: Insulin Aspart 100 Units/ML 3 ML Pen SUBCUT SCH ×4 (08:15→20:39)
[2018-05-12] MEDS: oxyCODONE 5 MG Tab PO PRN ×3 (10:09→20:10)
[2018-05-12] MEDS: Sodium Chloride 0.9% 10 ML Syringe FLUSH PRN ×4 (10:23→17:10)
--- NOTE | 2018-05-12 12:29 | PCM.PN ---
- General Info Date of Service: 05/12/18 Admission Dx/Problem (Free Text): Admission Diagnosis/Problem Admission Diagnosis/Problem Cellulitis and abscess Subjective Update: The redness in the lower extremity has improved. There is moderate pain at the site of the abscess on the right leg. Nonradiating. Sharp. Better with oxycodone. Worse with touch and dressing changes No associated chest pain, shortness of breath, nausea or vomiting. No diarrhea - Review of Systems General: Denies: Fever, Weakness Pulmonary: Denies: Shortness of Breath Cardiovascular: Denies: Chest Pain, Edema Neurological: Denies: Confusion - Patient Data Vitals - Most Recent: Last Vital Signs Temp 36.6 C 05/12/18 07:00 Pulse 63 05/12/18 07:00 Resp 18 05/12/18 07:00 BP 133/91 H 05/12/18 07:00 Pulse Ox 99 05/12/18 07:00 Weight - Most Recent: 116.392 kg I&O - Last 24 Hours: Intake & Output 05/11/18 05/12/18 05/12/18 22:59 06:59 14:59 Intake Total 800 2130 100 Output Total 2000 Balance 800 130 100 Lab Results Last 24 Hours: Laboratory Results - last 24 hr 05/11/18 05/11/18 05/12/18 Range/Units 16:38 20:47 04:30 WBC (5.0-10.0) 10^3/uL RBC (4.6-6.2) 10^6/uL Hgb (14.0-18.0) g/dL Hct (40.0-54.0) % MCV (80-100) fL MCH (27.0-34.0) pg MCHC (33.0-35.0) g/dL Plt Count (150-450) 10^3/uL Neut % (Auto) (42.2-75.2) % Lymph % (Auto) (20.5-50.1) % [place] % (Auto) (2-8) % Eos % (Auto) (1.0-3.0) % Baso % (Auto) (0.0-1.0) % POC Glucose 210 H 129 H (70-105) mg/dl Vancomycin Trough 29.1 H (10-15) ug/ml 05/12/18 05/12/18 Range/Units 04:30 07:40 WBC 13.2 H (5.0-10.0) 10^3/uL RBC 4.16 L (4.6-6.2) 10^6/uL Hgb 11.7 L (14.0-18.0) g/dL Hct 36.3 L (40.0-54.0) % MCV 87.3 (80-100) fL MCH 28.1 (27.0-34.0) pg MCHC 32.2 L (33.0-35.0) g/dL Plt Count 388 (150-450) 10^3/uL Neut % (Auto) 62.5 (42.2-75.2) % Lymph % (Auto) 19.3 L (20.5-50.1) % [place] % (Auto) 10.2 H (2-8) % Eos % (Auto) 7.2 H (1.0-3.0) % Baso % (Auto) 0.8 (0.0-1.0) % POC Glucose 131 H (70-105) mg/dl Vancomycin Trough (10-15) ug/ml Moisés Results Last 24 Hours: Microbiology 05/10/18 20:10 Wound Culture - Preliminary Leg, Right NO GROWTH AFTER 2 DAYS 05/10/18 18:50 Aerobic Blood Culture - Preliminary Blood - Venous - Lab Draw NO GROWTH AFTER 1 DAY Anaerobic Blood Culture - Final 05/10/18 18:45 Aerobic Blood Culture - Preliminary Blood - Venous NO GROWTH AFTER 1 DAY Anaerobic Blood Culture - Preliminary NO GROWTH AFTER 1 DAY Med Orders - Current: Current Medications Docusate Sodium (Colace) 100 mg PO BID PRN PRN Reason: Constipation Heparin Sodium (Porcine) (Heparin Sodium) 5,000 units SUBCUT Q8HR [facility] Last Admin: 05/12/18 05:34 Dose: 5,000 units Piperacillin Sod/Tazobactam (Sod 3.375 gm/ Sodium Chloride) 100 mls @ 200 mls/ hr IV Q6H [facility] Last Infusion: 05/12/18 11:21 Dose: Infused Vancomycin HCl 1.5 gm/ Sodium (Chloride) 500 mls @ 333.333 mls/hr IV Q8H [facility] Last Admin: 05/12/18 04:01 Dose: 333.333 mls/hr Ibuprofen (Motrin) 400 mg PO Q6H PRN PRN Reason: mild pain Insulin Aspart (Novolog) 0 unit SUBCUT ACBED [facility]; Protocol Last Admin: 05/12/18 12:02 Dose: Not Given Morphine Sulfate (Morphine) 2 mg IVPUSH Q4H PRN PRN Reason: Pain (severe 7-10) Ondansetron HCl (Zofran Odt) 4 mg PO Q6H PRN PRN Reason: nausea, able to take PO Oxycodone HCl (Oxycodone) 5 mg PO Q4H PRN PRN Reason: Pain (moderate 4-6) Last Admin: 05/12/18 10:09 Dose: 5 mg Sodium Chloride (Saline Flush) 10 ml FLUSH ASDIRECTED PRN PRN Reason: Keep Vein Open Last Admin: 05/12/18 10:23 Dose: 10 ml Vancomycin HCl (Pharmacy To Dose - Vancomycin) 1 dose .XX ASDIRECTED [facility] Zolpidem Tartrate (Ambien) 5 mg PO BEDTIME PRN PRN Reason: Sleep Discontinued Medications Diphtheria/Tetanus/Acell Pertussis (Adacel) 0.5 ml IM .ONCE ONE Stop: 05/11/18 11:29 Hydromorphone HCl (Dilaudid) 1 mg IVPUSH ONETIME ONE Stop: 05/10/18 20:14 Last Admin: 05/10/18 20:34 Dose: Not Given Hydromorphone HCl (Dilaudid) 1 mg IVPUSH ONETIME STA Stop: 05/10/18 20:19 Last Admin: 05/10/18 20:35 Dose: 1 mg Vancomycin HCl 1 gm/ Sodium (Chloride) 250 mls @ 167 mls/hr IV ONETIME ONE Stop: 05/10/18 21:29 Last Admin: 05/10/18 20:36 Dose: 167 mls/hr Vancomycin HCl 1.5 gm/ Sodium (Chloride) 500 mls @ 333.333 mls/hr IV Q8H [facility] Last Admin: 05/11/18 05:07 Dose: 333.333 mls/hr Ondansetron HCl (Zofran) 4 mg IV ONETIME ONE Stop: 05/10/18 20:14 Last Admin: 05/10/18 20:34 Dose: Not Given Ondansetron HCl (Zofran) 4 mg IV ONETIME STA Stop: 05/10/18 20:19 Last Admin: 05/10/18 20:33 Dose: 4 mg - Exam General: Alert, Oriented Neck: Supple Lungs: Clear to Auscultation, Normal Respiratory Effort Cardiovascular: Regular Rate, Regular Rhythm GI/Abdominal Exam: Normal Bowel Sounds, Soft, Non-Tender Extremities: No Pedal Edema, Other (Right lower extremity redness has improved, wound is packed) - Problem List & Annotations (1) Diabetes SNOMED Code(s): 57121053 Code(s): E11.9 - TYPE 2 DIABETES MELLITUS WITHOUT COMPLICATIONS Status: Acute Current Visit: Yes (2) Abscess SNOMED Code(s): 362091455 Code(s): L02.91 - CUTANEOUS ABSCESS, UNSPECIFIED Status: Acute Current Visit: No (3) Cellulitis SNOMED Code(s): 950622860 Code(s): L03.90 - CELLULITIS, UNSPECIFIED Status: Acute Current Visit: No Qualifiers: Site of cellulitis: extremity Site of cellulitis of extremity: lower extremity Laterality: right Qualified Code(s): L03.115 - Cellulitis of right lower limb - Problem List Review Problem List Initiated/Reviewed/Updated: Yes - My Orders Last 24 Hours: My Active Orders 05/11/18 11:28 Vaccines to be Administered [RC] PER UNIT ROUTINE 05/11/18 13:00 Vancomycin 1.5 gm Sodium Chloride 0.9% [Normal Saline] 500 ml IV Q8H 05/13/18 05:15 BASIC METABOLIC PANEL,BMP [CHEM] AM CBC WITH AUTO DIFF [HEME] AM - Plan Plan:: The patient is a 37-year-old gentleman who had developed a right lower extremity redness, pain, swelling. The patient was noted to have cellulitis with a large abscess that was drained in the emergency room. Cellulitis with abscess Failed outpatient oral antibiotic treatment with clindamycin blood culture negative for now wound culture from the drainage negative for now Wound care with packing of the wound Treat empirically with vancomycin and Zosyn Recheck electrolytes and renal function in the morning Diabetes Hold the metformin Follow blood sugars and use supplemental insulin as needed DVT prophylaxis with subcutaneous heparin
[2018-05-13] MEDS: Piperacillin/Tazobactam 3.375 GM in Sodium Chloride 0.9% 100 ML IV SCH ×4 (03:55→21:58)
[2018-05-13] MEDS: Vancomycin 1.5 GM in Sodium Chloride 0.9% 500 ML IV SCH ×3 (04:32→20:23)
[2018-05-13] MEDS: Heparin Sodium 5,000 Units/ML Vial SUBCUT SCH ×4 (04:33→21:55)
[2018-05-13 06:57] LABS: CHLORIDE,CL 106 mmol/L (101-111); SODIUM,NA 137 mmol/L (135-145)
[2018-05-13] MEDS: oxyCODONE 5 MG Tab PO PRN ×2 (09:59→19:28)
[2018-05-13] MEDS: Sodium Chloride 0.9% 10 ML Syringe FLUSH PRN ×4 (10:44→16:43)
--- NOTE | 2018-05-13 12:23 | PCM.PN ---
- General Info Date of Service: 05/13/18 Admission Dx/Problem (Free Text): Admission Diagnosis/Problem Admission Diagnosis/Problem Cellulitis and abscess Subjective Update: The redness in the lower extremity has improved but still present. There is moderate pain at the site of the abscess on the right leg. Non - radiating, Sharp. Better with oxycodone. Worse with touch and dressing changes. associated redness improved, swelling still present No associated chest pain, shortness of breath, nausea or vomiting. No diarrhea - Patient Data Vitals - Most Recent: Last Vital Signs Temp 37.3 C 05/13/18 07:00 Pulse 65 05/13/18 07:00 Resp 16 05/13/18 07:00 BP 144/103 H 05/13/18 07:00 Pulse Ox 100 05/13/18 07:00 Weight - Most Recent: 116.392 kg I&O - Last 24 Hours: Intake & Output 05/12/18 05/13/18 05/13/18 22:59 06:59 14:59 Intake Total 1624 2100 100 Output Total 500 600 Balance 1124 1500 100 Lab Results Last 24 Hours: Laboratory Results - last 24 hr 05/12/18 05/12/18 05/12/18 Range/Units 11:58 12:10 16:57 WBC (5.0-10.0) 10^3/uL RBC (4.6-6.2) 10^6/uL Hgb (14.0-18.0) g/dL Hct (40.0-54.0) % MCV (80-100) fL MCH (27.0-34.0) pg MCHC (33.0-35.0) g/dL Plt Count (150-450) 10^3/uL Neut % (Auto) (42.2-75.2) % Lymph % (Auto) (20.5-50.1) % [place] % (Auto) (2-8) % Eos % (Auto) (1.0-3.0) % Baso % (Auto) (0.0-1.0) % Sodium (135-145) mmol/L Potassium (3.6-5.0) mmol/L Chloride (101-111) mmol/L Carbon Dioxide (21.0-31.0) mmol/L Anion Gap BUN (7-18) mg/dL Creatinine (0.6-1.3) mg/dL Est Cr Clr Drug Dosing mL/min Estimated GFR (MDRD) Glucose (74-105) mg/dL POC Glucose 132 H 176 H (70-105) mg/dl Calcium (8.4-10.2) mg/dl Vancomycin Trough 12.8 (10-15) ug/ml 05/12/18 05/13/18 05/13/18 Range/Units 20:23 05:50 05:50 WBC 11.0 H (5.0-10.0) 10^3/uL RBC 4.18 L (4.6-6.2) 10^6/uL Hgb 11.7 L (14.0-18.0) g/dL Hct 36.9 L (40.0-54.0) % MCV 88.3 (80-100) fL MCH 28.0 (27.0-34.0) pg MCHC 31.7 L (33.0-35.0) g/dL Plt Count 360 (150-450) 10^3/uL Neut % (Auto) 65.5 (42.2-75.2) % Lymph % (Auto) 17.6 L (20.5-50.1) % [place] % (Auto) 9.4 H (2-8) % Eos % (Auto) 7.0 H (1.0-3.0) % Baso % (Auto) 0.5 (0.0-1.0) % Sodium 137 (135-145) mmol/L Potassium 4.0 (3.6-5.0) mmol/L Chloride 106 (101-111) mmol/L Carbon Dioxide 26.0 (21.0-31.0) mmol/L Anion Gap 9.0 BUN 8 (7-18) mg/dL Creatinine 0.7 (0.6-1.3) mg/dL Est Cr Clr Drug Dosing 156.88 mL/min Estimated GFR (MDRD) > 60 Glucose 157 H (74-105) mg/dL POC Glucose 114 H (70-105) mg/dl Calcium 8.0 L (8.4-10.2) mg/dl Vancomycin Trough (10-15) ug/ml 05/13/18 05/13/18 Range/Units 07:42 12:12 WBC (5.0-10.0) 10^3/uL RBC (4.6-6.2) 10^6/uL Hgb (14.0-18.0) g/dL Hct (40.0-54.0) % MCV (80-100) fL MCH (27.0-34.0) pg MCHC (33.0-35.0) g/dL Plt Count (150-450) 10^3/uL Neut % (Auto) (42.2-75.2) % Lymph % (Auto) (20.5-50.1) % [place] % (Auto) (2-8) % Eos % (Auto) (1.0-3.0) % Baso % (Auto) (0.0-1.0) % Sodium (135-145) mmol/L Potassium (3.6-5.0) mmol/L Chloride (101-111) mmol/L Carbon Dioxide (21.0-31.0) mmol/L Anion Gap BUN (7-18) mg/dL Creatinine (0.6-1.3) mg/dL Est Cr Clr Drug Dosing mL/min Estimated GFR (MDRD) Glucose (74-105) mg/dL POC Glucose 134 H 116 H (70-105) mg/dl Calcium (8.4-10.2) mg/dl Vancomycin Trough (10-15) ug/ml Moisés Results Last 24 Hours: Microbiology 05/10/18 18:50 Aerobic Blood Culture - Preliminary Blood - Venous - Lab Draw NO GROWTH AFTER 2 DAYS Anaerobic Blood Culture - Final 05/10/18 18:45 Aerobic Blood Culture - Preliminary Blood - Venous NO GROWTH AFTER 2 DAYS Anaerobic Blood Culture - Preliminary NO GROWTH AFTER 2 DAYS 05/10/18 20:10 Wound Culture - Preliminary Leg, Right NO GROWTH AFTER 2 DAYS Med Orders - Current: Current Medications Docusate Sodium (Colace) 100 mg PO BID PRN PRN Reason: Constipation Heparin Sodium (Porcine) (Heparin Sodium) 5,000 units SUBCUT Q8HR [facility] Last Admin: 05/13/18 06:11 Dose: Not Given Piperacillin Sod/Tazobactam (Sod 3.375 gm/ Sodium Chloride) 100 mls @ 200 mls/ hr IV Q6H [facility] Last Admin: 05/13/18 10:44 Dose: 200 mls/hr Vancomycin HCl 1.5 gm/ Sodium (Chloride) 500 mls @ 333.333 mls/hr IV Q8H [facility] Last Admin: 05/13/18 04:32 Dose: 333.333 mls/hr Ibuprofen (Motrin) 400 mg PO Q6H PRN PRN Reason: mild pain Last Admin: 05/12/18 16:43 Dose: 400 mg Insulin Aspart (Novolog) 0 unit SUBCUT ACBED [facility]; Protocol Last Admin: 05/12/18 20:39 Dose: Not Given Morphine Sulfate (Morphine) 2 mg IVPUSH Q4H PRN PRN Reason: Pain (severe 7-10) Ondansetron HCl (Zofran Odt) 4 mg PO Q6H PRN PRN Reason: nausea, able to take PO Oxycodone HCl (Oxycodone) 5 mg PO Q4H PRN PRN Reason: Pain (moderate 4-6) Last Admin: 05/13/18 09:59 Dose: 5 mg Sodium Chloride (Saline Flush) 10 ml FLUSH ASDIRECTED PRN PRN Reason: Keep Vein Open Last Admin: 05/13/18 10:44 Dose: 10 ml Vancomycin HCl (Pharmacy To Dose - Vancomycin) 1 dose .XX ASDIRECTED [facility] Zolpidem Tartrate (Ambien) 5 mg PO BEDTIME PRN PRN Reason: Sleep Discontinued Medications Diphtheria/Tetanus/Acell Pertussis (Adacel) 0.5 ml IM .ONCE ONE Stop: 05/11/18 11:29 Hydromorphone HCl (Dilaudid) 1 mg IVPUSH ONETIME ONE Stop: 05/10/18 20:14 Last Admin: 05/10/18 20:34 Dose: Not Given Hydromorphone HCl (Dilaudid) 1 mg IVPUSH ONETIME STA Stop: 05/10/18 20:19 Last Admin: 05/10/18 20:35 Dose: 1 mg Vancomycin HCl 1 gm/ Sodium (Chloride) 250 mls @ 167 mls/hr IV ONETIME ONE Stop: 05/10/18 21:29 Last Admin: 05/10/18 20:36 Dose: 167 mls/hr Vancomycin HCl 1.5 gm/ Sodium (Chloride) 500 mls @ 333.333 mls/hr IV Q8H [facility] Last Admin: 05/11/18 05:07 Dose: 333.333 mls/hr Ondansetron HCl (Zofran) 4 mg IV ONETIME ONE Stop: 05/10/18 20:14 Last Admin: 05/10/18 20:34 Dose: Not Given Ondansetron HCl (Zofran) 4 mg IV ONETIME STA Stop: 05/10/18 20:19 Last Admin: 05/10/18 20:33 Dose: 4 mg - Exam Quality Assessment: No: Supplemental Oxygen General: Alert, Oriented Neck: Supple Lungs: Clear to Auscultation, Normal Respiratory Effort Cardiovascular: Regular Rate, Regular Rhythm GI/Abdominal Exam: Normal Bowel Sounds, Soft, Non-Tender Extremities: Pedal Edema (around r. leg wound) Skin: Warm, Other (r. le redness have improved) Neurological: No New Focal Deficit Psy/Mental Status: Alert, Normal Affect, Normal Mood - Problem List & Annotations (1) Diabetes SNOMED Code(s): 15435670 Code(s): E11.9 - TYPE 2 DIABETES MELLITUS WITHOUT COMPLICATIONS Status: Acute Current Visit: Yes (2) Abscess SNOMED Code(s): 888366305 Code(s): L02.91 - CUTANEOUS ABSCESS, UNSPECIFIED Status: Acute Current Visit: No (3) Cellulitis SNOMED Code(s): 614574988 Code(s): L03.90 - CELLULITIS, UNSPECIFIED Status: Acute Current Visit: No Qualifiers: Site of cellulitis: extremity Site of cellulitis of extremity: lower extremity Laterality: right Qualified Code(s): L03.115 - Cellulitis of right lower limb - Problem List Review Problem List Initiated/Reviewed/Updated: Yes - My Orders Last 24 Hours: My Active Orders 05/14/18 05:15 BASIC METABOLIC PANEL,BMP [CHEM] AM CBC WITH AUTO DIFF [HEME] AM - Plan Plan:: The patient is a 37-year-old gentleman who had developed a right lower extremity redness, pain, swelling. The patient was noted to have cellulitis with a large abscess that was drained in the emergency room. Cellulitis with abscess Failed outpatient oral antibiotic treatment with clindamycin blood culture negative for now wound culture from the drainage negative for now Wound care with packing of the wound continue to treat empirically with vancomycin and Zosyn Recheck electrolytes and renal function in the morning Diabetes BSs are better Follow blood sugars and use supplemental insulin as needed resume the metformin DVT prophylaxis with subcutaneous heparin
[2018-05-13] MEDS: Insulin Aspart 100 Units/ML 3 ML Pen SUBCUT SCH ×4 (12:31→21:15)
[2018-05-13] MEDS: metFORMIN 500 MG Tab PO SCH (17:02)
[2018-05-14] MEDS: Piperacillin/Tazobactam 3.375 GM in Sodium Chloride 0.9% 100 ML IV SCH ×3 (04:37→17:17)
[2018-05-14] MEDS: Vancomycin 1.5 GM in Sodium Chloride 0.9% 500 ML IV SCH ×2 (05:10→17:14)
[2018-05-14] MEDS: Heparin Sodium 5,000 Units/ML Vial SUBCUT SCH ×2 (05:11→17:14)
[2018-05-14 07:04] LABS: ANION GAP 12.3; CHLORIDE,CL 101 mmol/L (101-111); SODIUM,NA 136 mmol/L (135-145)
[2018-05-14] MEDS: metFORMIN 500 MG Tab PO SCH (08:04)
[2018-05-14] MEDS: Insulin Aspart 100 Units/ML 3 ML Pen SUBCUT SCH ×2 (10:08→12:04)
--- NOTE | 2018-05-14 10:20 | PCM.DCSUM1 ---
Discharge Summary - Hospital Course Free Text/Narrative:: The patient is a 37-year-old gentleman who had developed a right lower extremity redness, pain, swelling. The patient was noted to have cellulitis with a large abscess that was drained in the emergency room. Cellulitis with abscess Failed outpatient oral antibiotic treatment with clindamycin prior to abscess darin[place] blood culture negative for now wound culture from the drainage negative for now Wound care with packing of the wound Treated empirically with vancomycin and Zosyn significantly improved will resume clindamycin and wound care Diabetes resume the metformin Diagnosis: Stroke: No - Discharge Data Discharge Date: 05/14/18 Discharge Disposition: Home, Self-Care 01 Condition: Fair - Discharge Diagnosis/Problem(s) (1) Diabetes SNOMED Code(s): 05824609 ICD Code: E11.9 - TYPE 2 DIABETES MELLITUS WITHOUT COMPLICATIONS Status: Acute Current Visit: Yes (2) Abscess SNOMED Code(s): 763168613 ICD Code: L02.91 - CUTANEOUS ABSCESS, UNSPECIFIED Status: Acute Current Visit: No (3) Cellulitis SNOMED Code(s): 024706420 ICD Code: L03.90 - CELLULITIS, UNSPECIFIED Status: Acute Current Visit: No Qualifiers: Site of cellulitis: extremity Site of cellulitis of extremity: lower extremity Laterality: right Qualified Code(s): L03.115 - Cellulitis of right lower limb - Patient Instructions Diet: Diabetic Diet Activity: As Tolerated - Discharge Plan *PRESCRIPTION DRUG MONITORING PROGRAM REVIEWED*: Not Applicable *COPY OF PRESCRIPTION DRUG MONITORING REPORT IN PATIENT AMANUEL: Not Applicable Home Medications: Home Meds Clindamycin HCl 300 mg PO TID 05/10/18 [History] Ibuprofen 400 mg PO Q8HR PRN 05/10/18 [History] metFORMIN HCl [Metformin HCl] 500 mg PO BID 05/10/18 [History] Forms: ED Department Discharge Referrals: PCP,Unobtain [Ordering Only Provider] - - Discharge Summary/Plan Comment DC Time >30 min.: No - General Info Date of Service: 05/14/18 Admission Dx/Problem (Free Text: Admission Diagnosis/Problem Admission Diagnosis/Problem Cellulitis and abscess Functional Status: Reports: Pain Controlled - Review of Systems General: Denies: Fever Cardiovascular: Denies: Chest Pain Gastrointestinal: Denies: Abdominal Pain Musculoskeletal: Reports: Leg Pain (better), Other (leg swelling is better) Skin: Reports: Other (redness resolved) - Patient Data Vitals - Most Recent: Last Vital Signs Temp 36.0 C 05/14/18 08:00 Pulse 64 05/14/18 08:00 Resp 18 05/14/18 08:00 BP 140/87 05/14/18 08:00 Pulse Ox 97 05/14/18 08:00 Weight - Most Recent: 116.392 kg I&O - Last 24 hours: Intake & Output 05/13/18 05/14/18 05/14/18 22:59 06:59 14:59 Intake Total 2100 1633 Output Total 1800 400 Balance 300 1233 Lab Results - Last 24 hrs: Laboratory Results - last 24 hr 05/13/18 05/13/18 05/13/18 Range/Units 12:12 16:47 20:35 WBC (5.0-10.0) 10^3/uL RBC (4.6-6.2) 10^6/uL Hgb (14.0-18.0) g/dL Hct (40.0-54.0) % MCV (80-100) fL MCH (27.0-34.0) pg MCHC (33.0-35.0) g/dL Plt Count (150-450) 10^3/uL Neut % (Auto) (42.2-75.2) % Lymph % (Auto) (20.5-50.1) % [place] % (Auto) (2-8) % Eos % (Auto) (1.0-3.0) % Baso % (Auto) (0.0-1.0) % Add Manual Diff Neutrophils % (Manual) (42-75) % Band Neutrophils % % Lymphocytes % (Manual) (20-50) % Monocytes % (Manual) (2-8) % Eosinophils % (Manual) (1-3) % Basophils % (Manual) Sodium (135-145) mmol/L Potassium (3.6-5.0) mmol/L Chloride (101-111) mmol/L Carbon Dioxide (21.0-31.0) mmol/L Anion Gap BUN (7-18) mg/dL Creatinine (0.6-1.3) mg/dL Est Cr Clr Drug Dosing mL/min Estimated GFR (MDRD) Glucose (74-105) mg/dL POC Glucose 116 H 97 117 H (70-105) mg/dl Calcium (8.4-10.2) mg/dl 05/14/18 05/14/18 05/14/18 Range/Units 06:02 06:02 07:45 WBC 11.1 H (5.0-10.0) 10^3/uL RBC 4.28 L (4.6-6.2) 10^6/uL Hgb 12.0 L (14.0-18.0) g/dL Hct 37.2 L (40.0-54.0) % MCV 86.9 (80-100) fL MCH 28.0 (27.0-34.0) pg MCHC 32.3 L (33.0-35.0) g/dL Plt Count 340 (150-450) 10^3/uL Neut % (Auto) 67.5 (42.2-75.2) % Lymph % (Auto) 17.8 L (20.5-50.1) % [place] % (Auto) 8.7 H (2-8) % Eos % (Auto) 5.5 H (1.0-3.0) % Baso % (Auto) 0.5 (0.0-1.0) % Add Manual Diff Yes Neutrophils % (Manual) 62 (42-75) % Band Neutrophils % 6 % Lymphocytes % (Manual) 19 L (20-50) % Monocytes % (Manual) 6 (2-8) % Eosinophils % (Manual) 6 H (1-3) % Basophils % (Manual) 1 Sodium 136 (135-145) mmol/L Potassium 4.3 (3.6-5.0) mmol/L Chloride 101 (101-111) mmol/L Carbon Dioxide 27.0 (21.0-31.0) mmol/L Anion Gap 12.3 BUN 7 (7-18) mg/dL Creatinine 0.7 (0.6-1.3) mg/dL Est Cr Clr Drug Dosing 156.88 mL/min Estimated GFR (MDRD) > 60 Glucose 115 H (74-105) mg/dL POC Glucose 110 H (70-105) mg/dl Calcium 8.5 (8.4-10.2) mg/dl MARILYN Results - Last 24 hrs: Microbiology 05/10/18 20:10 Wound Culture - Final Leg, Right NO GROWTH AFTER 3 DAYS 05/10/18 18:50 Aerobic Blood Culture - Preliminary Blood - Venous - Lab Draw NO GROWTH AFTER 3 DAYS Anaerobic Blood Culture - Final 05/10/18 18:45 Aerobic Blood Culture - Preliminary Blood - Venous NO GROWTH AFTER 3 DAYS Anaerobic Blood Culture - Preliminary NO GROWTH AFTER 3 DAYS Med Orders - Current: Current Medications Docusate Sodium (Colace) 100 mg PO BID PRN PRN Reason: Constipation Heparin Sodium (Porcine) (Heparin Sodium) 5,000 units SUBCUT Q8HR [facility] Last Admin: 05/14/18 05:11 Dose: 5,000 units Piperacillin Sod/Tazobactam (Sod 3.375 gm/ Sodium Chloride) 100 mls @ 200 mls/ hr IV Q6H [facility] Last Admin: 05/14/18 04:37 Dose: 200 mls/hr Vancomycin HCl 1.5 gm/ Sodium (Chloride) 500 mls @ 333.333 mls/hr IV Q8H [facility] Last Admin: 05/14/18 05:10 Dose: 333.333 mls/hr Ibuprofen (Motrin) 400 mg PO Q6H PRN PRN Reason: mild pain Last Admin: 05/12/18 16:43 Dose: 400 mg Insulin Aspart (Novolog) 0 unit SUBCUT ACBED [facility]; Protocol Last Admin: 05/14/18 10:08 Dose: Not Given Metformin HCl (Glucophage) 500 mg PO BIDMEALS [facility] Last Admin: 05/14/18 08:04 Dose: 500 mg Morphine Sulfate (Morphine) 2 mg IVPUSH Q4H PRN PRN Reason: Pain (severe 7-10) Ondansetron HCl (Zofran Odt) 4 mg PO Q6H PRN PRN Reason: nausea, able to take PO Oxycodone HCl (Oxycodone) 5 mg PO Q4H PRN PRN Reason: Pain (moderate 4-6) Last Admin: 05/13/18 19:28 Dose: 5 mg Sodium Chloride (Saline Flush) 10 ml FLUSH ASDIRECTED PRN PRN Reason: Keep Vein Open Last Admin: 05/13/18 16:43 Dose: 10 ml Vancomycin HCl (Pharmacy To Dose - Vancomycin) 1 dose .XX ASDIRECTED [facility] Zolpidem Tartrate (Ambien) 5 mg PO BEDTIME PRN PRN Reason: Sleep Discontinued Medications Diphtheria/Tetanus/Acell Pertussis (Adacel) 0.5 ml IM .ONCE ONE Stop: 05/11/18 11:29 Hydromorphone HCl (Dilaudid) 1 mg IVPUSH ONETIME ONE Stop: 05/10/18 20:14 Last Admin: 05/10/18 20:34 Dose: Not Given Hydromorphone HCl (Dilaudid) 1 mg IVPUSH ONETIME STA Stop: 05/10/18 20:19 Last Admin: 05/10/18 20:35 Dose: 1 mg Vancomycin HCl 1 gm/ Sodium (Chloride) 250 mls @ 167 mls/hr IV ONETIME ONE Stop: 05/10/18 21:29 Last Admin: 05/10/18 20:36 Dose: 167 mls/hr Vancomycin HCl 1.5 gm/ Sodium (Chloride) 500 mls @ 333.333 mls/hr IV Q8H [facility] Last Admin: 05/11/18 05:07 Dose: 333.333 mls/hr Ondansetron HCl (Zofran) 4 mg IV ONETIME ONE Stop: 05/10/18 20:14 Last Admin: 05/10/18 20:34 Dose: Not Given Ondansetron HCl (Zofran) 4 mg IV ONETIME STA Stop: 05/10/18 20:19 Last Admin: 05/10/18 20:33 Dose: 4 mg - Exam Quality Assessment: Denies: Supplemental Oxygen General: Reports: Alert, Oriented Lungs: Reports: Clear to Auscultation Cardiovascular: Reports: Regular Rate GI/Abdominal Exam: Normal Bowel Sounds, Soft, Non-Tender Extremities: No: Redness Discharge Operative/Procedures - Procedures Performed I&D Site: right lower leg
[2018-05-14 10:57] VITALS: BP 150/92
[2018-05-14] MEDS: oxyCODONE 5 MG Tab PO PRN (11:00)
[2018-05-14] MEDS: Sodium Chloride 0.9% 10 ML Syringe FLUSH PRN (11:08)
== END 2018-05-14 13:15 | disposition home or self-care (01) | DRG 603 ==
LOC: DL.ED 17:49 → DL.MS 21:09 → UNDOADMIN 21:09 → DL.MS 21:31
PROVIDERS: ADMIT Internal Medicine; ATTEND Internal Medicine
PROC: 0Y9H0ZX Drainage of Right Lower Leg, Open Approach, Diagnostic (ICD-10-PCS; principal; 2018-05-10)
DX: L03.115 Cellulitis of right lower limb (principal); E11.9 Type 2 diabetes mellitus without complications; I10 Essential (primary) hypertension; F17.210 Nicotine dependence, cigarettes, uncomplicated; H54.7 Unspecified visual loss; Z79.84 Long term (current) use of oral hypoglycemic drugs; Z79.899 Other long term (current) drug therapy
CPT/HCPCS: 36415; 73590-RT; 80048; 80053; 80202; 80305-QW; 81001; 82962; 83605; 85025; 87040; 87070; 96365; 96366; 96375; 99285; A9270-GY; J1170; J1644; J1815-GY; J2405; J2543; J3370; J7040; J7050

== ENCOUNTER 2020-05-21 22:57 | Emergency (ER) | payer MEDICAID ==
[2020-05-21 23:14] VITALS: BP 135/113; PULSE 122
--- NOTE | 2020-05-21 23:22 | EDM.PDOC ---
ED HPI GENERAL MEDICAL PROBLEM - General Chief Complaint: General Stated Complaint: AMBULANCE Time Seen by Provider: 05/21/20 23:21 Source of Information: Reports: Patient, EMS, EMS Notes Reviewed, RN, RN Notes Reviewed History Limitations: Reports: Intoxication - History of Present Illness INITIAL COMMENTS - FREE TEXT/NARRATIVE: Patient presents to ER per [facility] after significant other states the patient stated he was going to hang himself and she found him in a closet. Upon arrival to the ER patient states he does not want to harm himself or kill himself. But states he has had a significant amount of alcohol today. Denies any drug use. Patient admits to history of diabetes and hypertension for which he is supposed to be taking medications, but has not been. After labs drawn, patient walked out of the ER. Police Department was called. Patient will be sent to detox on suicide precautions until seen by [facility] tomorrow. Onset: Today, Sudden - Related Data Allergies Allergy/AdvReac Type Severity Reaction Status Date / Time No Known Allergies Allergy Verified 05/21/20 23:09 Home Meds: Home Meds Clindamycin HCl 300 mg PO TID 05/10/18 [History] Ibuprofen 400 mg PO Q8HR PRN 05/10/18 [History] metFORMIN HCl [Metformin HCl] 500 mg PO BID 05/10/18 [History] Past Medical History - Past Health History Medical/Surgical History: Denies Medical/Surgical History HEENT History: Reports: Impaired Vision Other HEENT History: wear glasses, Cardiovascular History: Reports: None, Heart Murmur, Hypertension Respiratory History: Reports: None Gastrointestinal History: Reports: None Genitourinary History: Reports: None Musculoskeletal History: Reports: None Neurological History: Reports: None Psychiatric History: Reports: None Endocrine/Metabolic History: Reports: Diabetes, Type II Hematologic History: Reports: None Immunologic History: Reports: None Oncologic (Cancer) History: Reports: None Dermatologic History: Reports: None - Infectious Disease History Infectious Disease History: Reports: None - Past Surgical History Head Surgeries/Procedures: Reports: None Social & Family History - Family History Family Medical History: Noncontributory - Tobacco Use Smoking Status *Q: Current Every Day Smoker Years of Tobacco use: 14 Packs/Tins Daily: 0.2 - Caffeine Use Caffeine Use: Reports: None - Alcohol Use Days Per Week of Alcohol Use: 4 Number of Drinks Per Day: 6 Total Drinks Per Week: 24 - Recreational Drug Use Recreational Drug Use: No ED ROS GENERAL - Review of Systems Review Of Systems: Comprehensive ROS is negative, except as noted in HPI. ED EXAM, GENERAL - Physical Exam Exam: See Below Exam Limited By: Intoxication General Appearance: Alert, WD/WN, No Apparent Distress, Anxious Eye Exam: Bilateral Eye: EOMI, Normal Inspection Ears: Normal External Exam, Hearing Grossly Normal Nose: Normal Inspection Throat/Mouth: Normal Inspection, Normal Voice, No Airway Compromise Head: Atraumatic, Normocephalic Neck: Normal Inspection, Supple, Non-Tender, Full Range of Motion Respiratory/Chest: No Respiratory Distress, Lungs Clear, Normal Breath Sounds, No Accessory Muscle Use, Chest Non-Tender Cardiovascular: Normal Peripheral Pulses, Regular Rate, Rhythm, No Edema, No Gallop, No JVD, No Murmur, No Rub Peripheral Pulses: 2+: Radial (L), Radial (R) GI/Abdominal: Normal Bowel Sounds, Soft, Non-Tender, No Organomegaly, No Distention (Male) Exam: Deferred Rectal (Males) Exam: Deferred Back Exam: Normal Inspection, Full Range of Motion, NT Extremities: Normal Inspection, Normal Range of Motion, Non-Tender, Normal Capillary Refill, No Pedal Edema Neurological: Alert, Oriented, CN II-XII Intact, Normal Cognition, Normal Gait, Normal Reflexes, No Motor/Sensory Deficits Psychiatric: Normal Affect, Normal Mood, Anxious Skin Exam: Warm, Dry, Intact, Normal Color, No Rash Lymphatic: No Adenopathy Course - Vital Signs Last Recorded V/S: Last Vital Signs Temp 96.8 F L 05/21/20 23:10 Pulse 122 H 05/21/20 23:10 Resp 20 05/21/20 23:10 BP 135/113 H 05/21/20 23:10 Pulse Ox 96 05/21/20 23:10 - Orders/Labs/Meds Orders: Active Orders 24 hr Category Date Time Status ACETAMINOPHEN [CHEM] Stat Lab 05/21/20 23:25 Received COMPREHENSIVE METABOLIC PN,CMP [CHEM] Stat Lab 05/21/20 23:25 Received DRUG SCREEN URINE BIORAD [URCHEM] Stat Lab 05/21/20 23:15 Received ETOH [ETHANOL BLOOD MEDICAL] [CHEM] Stat Lab 05/21/20 23:25 Received SALICYLATE [CHEM] Stat Lab 05/21/20 23:25 Received UA RFX MARILYN AND CULT IF INDIC [URIN] Stat Lab 05/21/20 23:15 Received Labs: Laboratory Tests 05/21/20 Range/Units 23:25 WBC 9.3 (5.0-10.0) 10^3/uL RBC 5.58 (4.6-6.2) 10^6/uL Hgb 16.4 D (14.0-18.0) g/dL Hct 47.5 (40.0-54.0) % MCV 85.1 (80-100) fL MCH 29.4 (27.0-34.0) pg MCHC 34.5 (33.0-35.0) g/dL Plt Count 199 D (150-450) 10^3/uL Neut % (Auto) 45.9 (42.2-75.2) % Lymph % (Auto) 40.5 (20.5-50.1) % [place] % (Auto) 5.8 (2-8) % Eos % (Auto) 5.9 H (1.0-3.0) % Baso % (Auto) 1.9 H (0.0-1.0) % Departure - Departure Time of Disposition: 23:51 Disposition: Against Medical Advice 07 Condition: Fair Clinical Impression: Suicide ideation Alcohol intoxication Qualifiers: Complication of substance-induced condition: with unspecified complication Qualified Code(s): F10.929 - Alcohol use, unspecified with intoxication, unspecified - Discharge Information *PRESCRIPTION DRUG MONITORING PROGRAM REVIEWED*: No *COPY OF PRESCRIPTION DRUG MONITORING REPORT IN PATIENT AMANUEL: No Forms: ED Department Discharge Additional Instructions: If picked up by the police department patient is to be taken to detox with suicide precautions/watch until evaluated by the [facility] Patient was walking and talking without problem. Is medically stable at this time. Sepsis Event Note (ED) - Evaluation Sepsis Screening Result: No Definite Risk - Focused Exam Vital Signs: Vital Signs Temp Pulse Resp BP Pulse Ox 05/21/20 23:10 96.8 F L 122 H 20 135/113 H 96 - My Orders Last 24 Hours: My Active Orders 05/21/20 23:15 DRUG SCREEN URINE BIORAD [URCHEM] Stat UA RFX MARILYN AND CULT IF INDIC [URIN] Stat 05/21/20 23:25 ACETAMINOPHEN [CHEM] Stat COMPREHENSIVE METABOLIC PN,CMP [CHEM] Stat ETOH [ETHANOL BLOOD MEDICAL] [CHEM] Stat SALICYLATE [CHEM] Stat - Assessment/Plan Last 24 Hours: My Active Orders 05/21/20 23:15 DRUG SCREEN URINE BIORAD [URCHEM] Stat UA RFX MARILYN AND CULT IF INDIC [URIN] Stat 05/21/20 23:25 ACETAMINOPHEN [CHEM] Stat COMPREHENSIVE METABOLIC PN,CMP [CHEM] Stat ETOH [ETHANOL BLOOD MEDICAL] [CHEM] Stat SALICYLATE [CHEM] Stat
[2020-05-21 23:54] LABS: ACETAMINOPHEN 0 ug/mL (10-30 (Therapeutic)); CHLORIDE,CL 104 mmol/L (98-107); SODIUM,NA 141 mmol/L (136-145)
== END 2020-05-21 23:40 | disposition left against medical advice (07) ==
LOC: DL.ED 22:57
DX: R45.851 Suicidal ideations (principal); F10.129 Alcohol abuse with intoxication, unspecified; I10 Essential (primary) hypertension; E11.9 Type 2 diabetes mellitus without complications; F17.210 Nicotine dependence, cigarettes, uncomplicated; Z79.84 Long term (current) use of oral hypoglycemic drugs
CPT/HCPCS: 36415; 80053; 80305-QW; 80307; 81001; 85025; 99283; 99285